=== PATIENT | male | born 1990 | race Caucasian/White ===

== ENCOUNTER 2017-05-24 17:31 | Emergency (ER) | payer OTHER ==
[~2017-05-24] VITALS: Ht 177.8 cm; Wt 85.7 kg
[~2017-05-24 17:31] MED LIST: ACEBUTCAFT PO; Amoxicillin500 MG PO; Bactrim Ds Tab1 EACH PO; CEPH500 PO; CLOT1SO TOP; CODACE30 PO; Citalopram HBr20 MG PO; Crutch1 EACH MISC; DEXA1 PO; Esgic Tablet1 EACH PO; FAMO20 PO; Flonase 0.05% N16 GM; HYDACE5325 PO; IBUP800 PO; Imitrex25 MG PO; Keflex500 MG PO; Naprosyn500 MG PO; Norco 5-325 Ta1 EACH PO; PERM5TC TOP; PRED10 PO; RXCODACET PO; SULTRIDS PO
[2017-05-24] MEDS ORDERED: METH40 PO (19:20)
[2017-05-25] MEDS ORDERED: Zofran Odt4 MG PO (07:26)
[2018-03-01] MEDS ORDERED: IBUP600 PO (22:23)
[2018-03-01] MEDS ORDERED: CEPH500 PO (22:23)
[2018-03-01] MEDS ORDERED: Bactrim Ds Tab1 EACH PO (22:23)
[2018-03-08] MEDS ORDERED: Bactrim Ds Tab1 EACH PO (20:20)
[2018-03-08] MEDS ORDERED: CEPH500 PO (20:20)
[2018-03-08] MEDS ORDERED: IBUP600 PO (20:20)
[2018-03-28] MEDS ORDERED: Bactrim Ds Tab1 EACH PO (16:33)
[2018-03-28] MEDS ORDERED: CEPH500 PO (16:33)
== END 2017-05-24 20:14 | disposition home or self-care (01) ==
LOC: ER 17:31
DX: S09.90XA Unspecified injury of head, initial encounter (principal); F11.23 Opioid dependence with withdrawal; F17.210 Nicotine dependence, cigarettes, uncomplicated; Z79.899 Other long term (current) drug therapy; Y04.2XXA Assault by strike against or bumped into by another person, initial encounter
CPT/HCPCS: 99283

== ENCOUNTER 2017-05-25 04:17 | Emergency (ER) | payer OTHER ==
[~2017-05-25] VITALS: Ht 180.3 cm; Wt 85.7 kg
[~2017-05-25 04:17] MED LIST changes: +METH40 PO
[2017-05-25] MEDS ORDERED: Zofran Odt4 MG PO (07:26)
[2018-03-01] MEDS ORDERED: IBUP600 PO (22:23)
[2018-03-01] MEDS ORDERED: Bactrim Ds Tab1 EACH PO (22:23)
[2018-03-01] MEDS ORDERED: CEPH500 PO (22:23)
[2018-03-08] MEDS ORDERED: IBUP600 PO (20:20)
[2018-03-08] MEDS ORDERED: Bactrim Ds Tab1 EACH PO (20:20)
[2018-03-08] MEDS ORDERED: CEPH500 PO (20:20)
[2018-03-28] MEDS ORDERED: Bactrim Ds Tab1 EACH PO (16:33)
[2018-03-28] MEDS ORDERED: CEPH500 PO (16:33)
== END 2017-05-25 07:58 | disposition home or self-care (01) ==
LOC: ER 04:17
DX: S06.0X0A Concussion without loss of consciousness, initial encounter (principal); S80.02XA Contusion of left knee, initial encounter; F17.200 Nicotine dependence, unspecified, uncomplicated; Z88.8 Allergy status to other drugs, medicaments and biological substances; Z79.899 Other long term (current) drug therapy; Y04.2XXA Assault by strike against or bumped into by another person, initial encounter
CPT/HCPCS: 70450; 73562-LT; 99284

== ENCOUNTER 2017-08-10 23:46 | Emergency (ER) | payer OTHER ==
[~2017-08-10] VITALS: Ht 180.3 cm; Wt 79.4 kg
[~2017-08-10 23:46] MED LIST changes: +Zofran Odt4 MG PO
[2017-08-11] MEDS ORDERED: Prednisone20 MG PO (00:59)
[2017-08-11] MEDS ORDERED: Triamcinolone A15 GM TOP (00:59)
[2018-03-01] MEDS ORDERED: Bactrim Ds Tab1 EACH PO (22:23)
[2018-03-01] MEDS ORDERED: CEPH500 PO (22:23)
[2018-03-01] MEDS ORDERED: IBUP600 PO (22:23)
[2018-03-08] MEDS ORDERED: CEPH500 PO (20:20)
[2018-03-08] MEDS ORDERED: IBUP600 PO (20:20)
[2018-03-08] MEDS ORDERED: Bactrim Ds Tab1 EACH PO (20:20)
[2018-03-28] MEDS ORDERED: Bactrim Ds Tab1 EACH PO (16:33)
[2018-03-28] MEDS ORDERED: CEPH500 PO (16:33)
== END 2017-08-11 01:40 | disposition home or self-care (01) ==
LOC: ER 23:46
DX: L30.9 Dermatitis, unspecified (principal); F17.210 Nicotine dependence, cigarettes, uncomplicated; Z88.8 Allergy status to other drugs, medicaments and biological substances; Z79.899 Other long term (current) drug therapy; Z79.52 Long term (current) use of systemic steroids
CPT/HCPCS: 96372; 99283; J1885

== ENCOUNTER 2017-09-05 00:53 | Emergency (ER) | payer OTHER ==
[~2017-09-05 00:53] MED LIST changes: +Prednisone20 MG PO; +Triamcinolone A15 GM TOP
== END 2017-09-05 01:40 | disposition home or self-care (01) ==
LOC: ER 00:53
DX: L40.9 Psoriasis, unspecified (principal)
CPT/HCPCS: 99282

== ENCOUNTER 2018-03-23 17:27 | Emergency (ER) | payer OTHER ==
[~2018-03-23] VITALS: Ht 180.3 cm; Wt 72.6 kg
[~2018-03-23 17:27] MED LIST changes: +IBUP600 PO
== END 2018-03-23 19:40 | disposition home or self-care (01) ==
LOC: ER 17:27
DX: R07.89 Other chest pain (principal); F17.200 Nicotine dependence, unspecified, uncomplicated; Z88.8 Allergy status to other drugs, medicaments and biological substances; Z79.899 Other long term (current) drug therapy
CPT/HCPCS: 36415; 71046; 93005; 93010; 99284-25

== ENCOUNTER 2018-08-06 09:56 | Emergency (ER) | payer OTHER ==
[~2018-08-06] VITALS: Ht 177.8 cm; Wt 86.2 kg
[2018-08-06] MEDS ORDERED: METH10 PO (10:05)
[2018-08-06 10:47] LABS: Influenza A Positive (NEGATIVE); Influenza B Negative (NEGATIVE)
[2018-08-06] MEDS ORDERED: Flonase 0.05% N16 GM (11:06)
[2018-08-06] MEDS ORDERED: Sudogest30 MG PO (11:06)
[2018-08-06] MEDS ORDERED: Cheratussin AC118 ML PO (11:06)
[2018-08-06] MEDS ORDERED: BENZ100A PO (11:06)
== END 2018-08-06 11:12 | disposition home or self-care (01) ==
LOC: ER 09:56
PROVIDERS: Physician Assistant
DX: J10.1 Influenza due to other identified influenza virus with other respiratory manifestations (principal); F17.210 Nicotine dependence, cigarettes, uncomplicated; Z79.899 Other long term (current) drug therapy
CPT/HCPCS: 71046; 87804; 99283-25

== ENCOUNTER 2018-10-01 08:12 | Emergency (ER) | payer OTHER ==
[~2018-10-01] VITALS: Ht 177.8 cm; Wt 86.2 kg
[~2018-10-01 08:12] MED LIST changes: +BENZ100A PO; +Cheratussin AC118 ML PO; +METH10 PO; +Sudogest30 MG PO
[2018-10-01] MEDS ORDERED: Citalopram HBr10 MG PO (09:37)
== END 2018-10-01 09:29 | disposition home or self-care (01) ==
LOC: ER 08:12
DX: S52.122A Displaced fracture of head of left radius, initial encounter for closed fracture (principal); V00.131A Fall from skateboard, initial encounter; Z88.8 Allergy status to other drugs, medicaments and biological substances; Z79.899 Other long term (current) drug therapy; F17.210 Nicotine dependence, cigarettes, uncomplicated
CPT/HCPCS: 73080; 99283-25

== ENCOUNTER 2020-03-20 12:33 | Emergency (ER) | payer OTHER ==
[~2020-03-20] VITALS: Ht 180.3 cm; Wt 99.8 kg
[~2020-03-20 12:33] MED LIST changes: +Citalopram HBr10 MG PO
[2020-03-20] MEDS ORDERED: METH5 (17:04)
[2020-03-20] MEDS ORDERED: HYDR1TAB94 PO (17:05)
[2020-03-20] MEDS ORDERED: KETO10 PO (17:08)
== END 2020-03-20 17:16 | disposition home or self-care (01) ==
LOC: ER 12:33
DX: M79.604 Pain in right leg (principal); F17.210 Nicotine dependence, cigarettes, uncomplicated; Z88.8 Allergy status to other drugs, medicaments and biological substances; Z79.899 Other long term (current) drug therapy; V86.56XA Driver of dirt bike or motor/cross bike injured in nontraffic accident, initial encounter
CPT/HCPCS: 73552; 99283-25

== ENCOUNTER 2020-10-20 13:40 | Emergency (ER) | payer OTHER ==
[~2020-10-20] VITALS: Ht 180.3 cm; Wt 83.9 kg
[~2020-10-20 13:40] MED LIST changes: +HYDR1TAB94 PO; +KETO10 PO; +METH5
== END 2020-10-20 16:21 | disposition left against medical advice (07) ==
LOC: ER 13:40
DX: Z53.21 Procedure and treatment not carried out due to patient leaving prior to being seen by health care provider (principal)

== ENCOUNTER 2023-11-01 10:29 | Emergency (ER) | payer OTHER ==
[~2023-11-01] VITALS: Ht 177.8 cm; Wt 90.7 kg
[2023-11-01 10:49] VITALS: BP 136/78
[2023-11-01] MEDS ORDERED: TESTOSTERONE60 GM (11:21)
[2023-11-01] MEDS ORDERED: CefTRIAXone 1000 MG Vial IM ONE (12:35)
[2023-11-01] MEDS ORDERED: CEPH500 PO (12:45)
[2023-11-01] MEDS ORDERED: BACTRIM DS TAB1 EAC1 PO (12:45)
== END 2023-11-01 12:55 | disposition home or self-care (01) ==
LOC: ER 10:29
DX: L03.311 Cellulitis of abdominal wall (principal); F17.210 Nicotine dependence, cigarettes, uncomplicated
CPT/HCPCS: 96372; 99283-25; J0696